=== PATIENT | male | born 1940 | race Caucasian/White ===

== ENCOUNTER 2023-11-17 10:24 | Day surgery (SDC) | payer OTHER ==
[2023-11-15 10:39] LABS: Absolute Eosinophils 0.2 K/uL (0-0.5); Absolute Lymphocytes (CBC) 0.8 K/uL (0.7-4.9); Absolute Monocytes 1.3 K/uL (0.1-1.3); Absolute Neutrophil 6.3 K/uL (1.8-8.0); Basophils % 0.4 % (0-1.3); Eosinophils % 2.8 % (0-4.4); Hematocrit 35.2 % (39.6-49.0); Hemoglobin 11.7 g/dL (13.6-17.9); Lymphocytes % 8.8 % (15.3-44.8); MCH 34.5 pg (27.0-35.0); MCHC 33.1 g/dL (32.0-36.0); MCV 104.1 fL (80-100); MPV 7.3 fL (7.6-11.3); Monocytes % 15.1 % (3.3-12.3); Neutrophils % 72.9 % (41.7-73.7); Platelets 303 thou/uL (152-406); RBC Red Blood Cell Count 3.38 M/uL (4.33-5.43); Red Cell Distribution Width 12.8 % (12.1-15.2)
[2023-11-15 10:50] LABS: Anion Gap 9.5 mEq/L (5.0-15.0); Potassium 4.5 mEq/L (3.5-5.1)
[2023-11-15 11:06] LABS: PT Prothrombin Time 11.3 SECONDS (9.4-12.5); Protime INR 1.01
[2023-11-17] MEDS: NA CHLORIDE 0.9% 1,000 ML ONE (10:55)
[2023-11-17] MEDS ORDERED: LIDOCAINE 1% MPF 5 ML VIAL ONE (13:44)
[2023-11-17] MEDS ORDERED: propofoL 200 MG/20 ML VIAL IV ONE ×2 (13:44)
[2023-11-17 15:08] VITALS: BP 148/72; TEMP 97.2; O2SAT 97
== END 2023-11-17 15:05 | disposition home or self-care (01) ==
LOC: OR 10:24
PROVIDERS: ATTEND Surgery
PROC: 0DJD8ZZ Inspection of Lower Intestinal Tract, Via Natural or Artificial Opening Endoscopic (ICD-10-PCS; principal; 2023-11-17 13:45)
DX: Z12.11 Encounter for screening for malignant neoplasm of colon (principal); K57.30 Diverticulosis of large intestine without perforation or abscess without bleeding; K64.8 Other hemorrhoids
CPT/HCPCS: 85025; 80048; 36415; 85610; 85730; J2704; J2001; J7030; G0121